=== PATIENT | male | born 1985 | race Caucasian/White ===

== ENCOUNTER → 2017-04-21 | Outpatient (CLI) | payer BC ==
[2017-04-21 11:25] LABS: ALBUMIN 4.9 gm/dL (3.5-5.0); CALCIUM 9.4 mg/dL (8.4-10.2); CHOLESTEROL RISK RATIO 4.6; CREATININE, serum 0.77 mg/dL (0.66-1.25); PHOSPHOROUS 4.1 mg/dL (2.5-4.5); POTASSIUM 4.2 mmol/L (3.4-5.0)
[2017-04-21 11:55] LABS: TSH w REFLEX 2.69 uIU/mL (0.465-4.680)
== END ==
LOC: COL.LAB 10:17
PROVIDERS: Internal Medicine Endocrinology, Diabetes & Metabolism
DX: E27.40 Unspecified adrenocortical insufficiency (principal); E66.01 Morbid (severe) obesity due to excess calories

== ENCOUNTER → 2018-09-01 | Outpatient (CLI) | payer BC ==
[2018-09-01 11:03] LABS: ALBUMIN 4.7 gm/dL (3.5-5.0); BILIRUBIN,TOTAL 0.4 mg/dL (0.0-1.0); CALCIUM 9.8 mg/dL (8.4-10.2); CREATININE, serum 0.67 (0.66-1.25); POTASSIUM 4.4 mmol/L (3.4-5.0); TOTAL PROTEIN 8.4 gm/dL (6.4-8.2)
[2018-09-01 12:01] LABS: CHOLESTEROL RISK RATIO 4.8
== END ==
LOC: COL.LAB 09:44
PROVIDERS: Internal Medicine Endocrinology, Diabetes & Metabolism
DX: D35.00 Benign neoplasm of unspecified adrenal gland (principal); Q85.8 Other phakomatoses, not elsewhere classified